=== PATIENT | female | born 1955 | race Caucasian/White ===

== ENCOUNTER 2020-09-18 11:22 | Emergency (ER) | payer MEDICARE, SELFPAY ==
[2020-09-18 11:44] VITALS: BP 144/84; PULSE 83; RESP 14; TEMP 36.6; O2SAT 100; BMI 37.4
--- NOTE | 2020-09-18 11:55 | CT_ITS ---
WS: [id number] CT FACIAL BONES with contrast. HISTORY: abscess of the nasal septum TECHNIQUE: Images obtained from the supraorbital location through the mandible. Soft tissue and bone windows are reviewed. Coronal and sagittal reformats have also been submitted. DLP: 734.[address] scans at [facility] use at least one of these dose optimization techniques: automat ed exposure control; mA and/or kV adjustment per patient size (includes targeted exams where dose is matched to clinical indication); or iterative reconstruction. COMPARISON: None available. Contrast: Omnipaque 300; 95 cc IV. Soft tissue abscess centered within the upper lip with extension into the soft tissues of the inferio r nasal region. This soft tissue abscess measures 14 x 9 mm. There is a tract that extends superficia l from the abscess along the upper lip. There is a significant amount of soft tissue inflammation and enhancement. No dental caries identified within this area. There is no foreign body identified. No air-fluid levels within the sinus cavities. No adenopathy along the visualized cervical chains. CT/CT facial bones w con [id number] IMPRESSION: 1. Soft tissue abscess centered in the upper lip with extension to the base of the nasal region. Abscess measures 14 x 9 mm. 2. No foreign body. 3. No bone destruction.
[2020-09-18 12:21] LABS: Basophils % 0.5 %; Eosinophils # 0.1 10^3/uL (0.0-0.8); Eosinophils % 1.2 %; Hematocrit 37.1 % (37.0-47.0); Hemoglobin 12.6 g/dL (11.5-15.3); Lymphocytes # 1.6 10^3/uL (0.8-4.8); Lymphocytes % 19.9 %; Mean Corpuscular Hemoglobin 31.7 pg (28.0-34.0); Mean Corpuscular Volume 93.2 fL (81-99); Mean Platelet Volume 9.6 fL (7.4-10.4); Monocytes # 0.8 10^3/uL (0.2-0.9); Monocytes % 9.5 %; Neutrophils # 5.64 10^3/uL (1.8-7.7); Neutrophils % 68.7 %; Nucleated Red Blood Cells % 0 %; Platelet Count 299 10^3/cmm (130-400); Red Blood Count 3.98 10^6/uL (4.1-5.3); Red Cell Distribution Width 11.5 % (12.1-15.1); White Blood Count 8.2 10^3/uL (4.0-10.0)
--- NOTE | 2020-09-18 12:35 | W.ED.SKABFB ---
HPI - Skin/Abscess/Foreign Bdy General: Chief complaint: Skin/Abscess/Foreign Body Stated complaint: Nasal abscess/sent by PCP Time Seen by Provider: 09/18/20 11:49 History of Present Illness: HPI narrative: 65-year-old female presents to the emergency room with complaint of abscess. She is seen by her primary care has an abscess adjacent to the nasal septum and the os of the right nare. Began a few days ago she had a pimple in that area and was manipulating it and rapidly progressed. She is initially treated with Keflex and Rocephin. MD complaint: abscess/boil Onset (ago): day(s) (2) Location: face Severity: moderate Quality: sharp Associated symptoms: Deny chills, fever(s), nausea or vomiting Review of Systems Const: Denies: fever(s), chills, body aches, change in appetite, fatigue or malaise ENMT: Reports: nasal discharge; Denies: throat pain or ear or mastoid pain Card: Denies: chest pain, edema, dyspnea on exertion or orthopnea Resp: Denies: dyspnea, productive cough or non-productive cough GI: Denies: abdominal pain, nausea, vomiting, hematemesis, coffee ground emesis, diarrhea, constipation, bloating, hematochezia or melena PFSH ED PFSH: Medical History (Updated 09/18/20 @ 14:05 by Cory Sahu DO) Hypothyroidism Sleep apnea Surgical History (Updated 09/17/20 @ 13:28 by TOÑA Rascon) History of Hx of cataract extraction Family History (Updated 09/17/20 @ 13:29 by TOÑA Rascon) Mother Diabetes Hypertension Father Hypertension CAD (coronary artery disease) Social History (Updated 09/17/20 @ 13:24 by Josseline Ignacio LPN) Smoking and tobacco status: never smoked Second hand smoke exposure: No Physical Exam Const: COMMON NORMALS: no acute distress GENERAL APPEARANCE: cooperative and comfortable ORIENTATION/CONSCIOUSNESS: Yes awake, Yes oriented to person, Yes oriented to place and Yes oriented to time HENMT: COMMON NORMALS: normocephalic, atraumatic and hearing grossly normal bilaterally HEAD & SCALP: normocephalic and atraumatic OTHER: Abscess at that right nasal office immediately adjacent to this septum extending into the anterior septum. Attempted to drain with a needle drainage and aspirated by syringe was unable to get any significant amount only got a few drops enough to do a culture. Neck/C-Spine: COMMON NORMALS: no JVD Lymph: LYMPHATIC: no lymphadenopathy noted and no lymphedema noted Resp: COMMON NORMALS: normal respiratory effort, No retractions, No use of accessory muscles and clear to auscultation bilaterally AUSCULTATION: clear to auscultation bilaterally Cardio: COMMON NORMALS: no JVD, regular rate, regular rhythm and No murmurs present (Cardio) RATE: regular rate RHYTHM: regular rhythm Neuro: SENSORIUM/ORIENTATION: Yes oriented to person, Yes oriented to place and Yes oriented to time Procedures Abscess I/D Site: face (Right nasal loss) Side (if applicable): right Technique: needle aspiration Amount of fluid expressed (mL): 1 Irrigation: No Packing used?: none Complications: pain Course Vital Signs: Vital signs: Vital Signs Temperature 97.9 F 09/18/20 11:44 Pulse Rate 75 09/18/20 14:50 Respiratory Rate 16 09/18/20 14:50 Blood Pressure 148/70 09/18/20 14:50 Pulse Oximetry 97 09/18/20 14:50 MDM - Skin/Abscess/Foreign Bdy MDM Narrative: Medical decision making narrative: CT reviewed. We do not have any availability of ENT on-call I feel this should be incised and drained properly. Did was able to discuss with Dr. Negrete but he is not on-call and he is not available he simply advised us on what to do will transfer her to back sure they do have an on-call ENT where she can receive incision and drainage. Lab Data: Labs: Lab Results 09/18/20 09/18/20 Range/Units 12:15 12:15 WBC 8.2 (4.0-10.0) 10^3/ uL RBC 3.98 L (4.1-5.3) 10^6/u L Hgb 12.6 (11.5-15.3) g/dL Hct 37.1 (37.0-47.0) % MCV 93.2 (81-99) fL MCH 31.7 (28.0-34.0) pg MCHC 34.0 (30.0-36.0) g/dL RDW 11.5 L (12.1-15.1) % Plt Count 299 (130-400) 10^3/c mm MPV 9.6 (7.4-10.4) fL Neut % (Auto) 68.7 % Lymph % (Auto) 19.9 % [place] % (Auto) 9.5 % Eos % (Auto) 1.2 % Baso % (Auto) 0.5 % Neut # (Auto) 5.64 (1.8-7.7) 10^3/u L Lymph # (Auto) 1.6 (0.8-4.8) 10^3/u L [place] # (Auto) 0.8 (0.2-0.9) 10^3/u L Eos # (Auto) 0.1 (0.0-0.8) 10^3/u L Baso # (Auto) 0.0 (0.0-0.1) 10^3/u L Nucleated RBC % (a uto) 0 % Nucleated RBCs # 0.0 /100WBC Sodium 131 L (136-145) mmol/L Potassium 4.0 (3.5-5.1) mmol/L Chloride 96 L (98-107) mmol/L Carbon Dioxide 22 (22-29) mmol/L Anion Gap 17.0 (5-19) BUN 16 (8-23) mg/dL Creatinine 0.8 (0.5-0.9) mg/dL GFR Calculation 72.0 L (90-130) mL/min Glucose 101 (65-115) mg/dL Calculated Osmolal ity 273 L (285-295) mOsm/k g Calcium 9.1 (8.5-10.5) mg/dL Total Bilirubin 0.3 (0.15-1.2) mg/dL AST 21 (0-32) U/L ALT 18 (0-33) U/L Alkaline Phosphata se 72 (35-105) IU/L Total Protein 7.1 (6.6-8.7) g/dL Albumin 4.0 (3.5-5.2) g/dL Globulin 3.1 (1.3-4.6) g/dL Discharge Plan Discharge Patient Disposition: Transfer to ED Clinical Impression: Abscess of nose (septum) Condition: Stable Prescriptions: New hydrocodone-acetaminophen 5-325 mg tablet 1 tab PO Q6H PRN (Reason: pain) Qty: 20 RF: 0 No Action potassium chloride 10 mEq capsule, extended release 10 meq PO BID@10,21 RF: 0 candesartan 16 mg tablet 16 mg PO DAILY@21 RF: 0 mupirocin 2 % ointment 1 applic topical BID Qty: 15 RF: 0 hydrochlorothiazide 25 mg tablet 25 mg PO DAILY@06 RF: 0 levothyroxine 112 mcg tablet 112 mcg PO DAILY@06 RF: 0 Bactrim DS 800-160 mg tablet 1 tab PO BID@08,20 RF: 0 Discharge Orders: Discharge ED (Routine); Ordered 09/18/20 Ordered By: Cory Sauh Activity Restrictions/Additional Instructions: Proceeded to ER at [facility]. I have talked to the ER doctor a ENT doctor will be consulted to do an incision and drainage on the abscess in the nares. Please do not eat or drink until you see the ear nose and throat doctor. Coding Level of Care Code ED [employer] Hand for Chaitanya Ramírez
[2020-09-18 12:43] LABS: Alanine Aminotransferase 18 U/L (0-33); Alkaline Phosphatase 72 IU/L (35-105); Aspartate Amino Transferase 21 U/L (0-32); Blood Urea Nitrogen 16 mg/dL (8-23); Calcium 9.1 mg/dL (8.5-10.5); Carbon Dioxide 22 mmol/L (22-29); Chloride 96 mmol/L (98-107); Globulin 3.1 g/dL (1.3-4.6); Glucose 101 mg/dL (65-115); Osmolality Calculated 273 mOsm/kg (285-295); Sodium 131 mmol/L (136-145); Total Bilirubin 0.3 mg/dL (0.15-1.2); Total Protein 7.1 g/dL (6.6-8.7)
[2020-09-18] MEDS: vancomycin 1,000 MG in sodium chloride 0.9% 250 ML 250 MG IV (12:43)
[2020-09-18 12:50] VITALS: BP 127/73; PULSE 71; RESP 16; O2SAT 96
[2020-09-18] MEDS: iohexol 300 mg/mL 100 mL Btl IV (13:03)
[2020-09-18 13:53] VITALS: BP 144/65; PULSE 75; RESP 14; O2SAT 98
[2020-09-18] MEDS: ondansetron 2 mg/ML SDV 2 mL 4 MG IVP (13:53)
[2020-09-18] MEDS: morphine 4 mg/mL SDV 1 mL IVP (13:53)
[2020-09-18 14:50] VITALS: BP 148/70; PULSE 75; RESP 16; O2SAT 97
== END 2020-09-18 14:51 ==
PROVIDERS: Emergency Provider Family Medicine
DX: J34.0 Abscess, furuncle and carbuncle of nose (principal)
CPT/HCPCS: 10160; 12345; 70487; 80053; 85025; 87040; 96365; 96375; 99282; 99283; J2270; J2405; J3370; J7050; Q9967